=== PATIENT | female | born 1940 | race Caucasian/White ===

== ENCOUNTER → 2017-09-14 | Outpatient (CLI) | payer MEDICARE | END | disposition home or self-care (01) | LOC: KCIC DEXA 12:01 | DX: Z13.820 Encounter for screening for osteoporosis (principal); M85.80 Other specified disorders of bone density and structure, unspecified site; Z78.0 Asymptomatic menopausal state | CPT/HCPCS: 77080; 77081 ==

== ENCOUNTER 2021-06-27 11:42 | Emergency (ER) | payer MEDICARE ==
[~2021-06-27] VITALS: Ht 165.1 cm; Wt 60.9 kg
[2021-06-27] MEDS ORDERED: traMADol 50 MG TABLET PO ONE (12:45)
--- NOTE | 2021-06-27 13:38 | RAD ---
Site ID: [id number] EXAMINATION: XR HIP (WITH OR WITHOUT PELVIS) 1 VIEW. HISTORY: 80 years Female Reason: LEFT HIP PAIN, NO KNOWN INJURY COMPARISON: None. FINDINGS: No fracture, dislocation or radiopaque foreign body. There is mild joint space narrowing seen in t he hips bilaterally and mild degenerative sclerotic changes in the SI joints noted.. IMPRESSION: Mild degenerative changes Electronically signed by: Sagar Guardado MD (06/27/2021 1:36 PM) [id number]
[2021-06-27] MEDS ORDERED: TRAM50TA PO (14:00)
--- NOTE | 2021-06-27 14:02 | PHYS DOC ---
Past Medical History Past Medical History: COPD Additional Past Medical Histor: SKIN CANCER, osteoporosis with h/o pathological hip fracture Past Surgical History: Other Additional Past Surgical Histo: SKIN CANCER REMOVAL LEFT CHEST Smoking Status: Current Every Day Smoker Additional Information: 07/15 PK/DAY Alcohol Use: None General Adult EDM: Chief Complaint: HIP PAIN HPI: HPI: Patient is a 80 year old female who presents with left hip pain. Patient's daughter, whom the patient lives with, is at bedside, and aids in providing history. Patient reports that her pain began yesterday and is worse upon waking this morning. Patient normally ambulates independently at home, but has needed to use her walker to ambulate today. She did have a prior pathological fracture on the left side as well as bursitis. She follows with Dr. Ambriz for her hip pain and problems. Patient denies injury, fall or other trauma. She has no other complaints at this time. Patient reports past medical history of COPD, for which she has breathing treatments daily and oxygen at night. Patient states that she did not do a breathing treatment this morning secondary to her pain and concern, which led to her presenting to the emergency department. Review of Systems: Review of Systems: Constitutional: Denies fever or chills. Respiratory: Denies cough or shortness of breath. Cardiovascular: Denies chest pain or edema. GI: Denies abdominal pain, nausea, vomiting, bloody stools or diarrhea. : Denies dysuria or hematuria. Musculoskeletal: See HPI Integument: Denies rash or other new skin lesions. Neurologic: Denies headache, focal weakness or sensory changes. Heart Score: C/O Chest Pain: No Current Medications: Current Medications Medications (Trade) Dose Ordered Sig/[facility] Start Time Stop Time Status Last Admin Dose Admin Tramadol HCl (Ultram) 50 mg 1X ONCE 06/27/21 12:45 06/27/21 12:46 DC 06/27/21 12:45 50 MG Allergies: Allergies: Allergies Coded Allergies Type Severity Reaction Last Updated Verified iodine Allergy Severe Anaphylaxis 06/27/21 Yes clopidogrel Allergy Intermediate Rash 06/27/21 Yes Physical Exam: PE: Constitutional: Well developed, well nourished, well groomed, no acute distress, non-toxic appearance. Cardiovascular: Heart rate regular rhythm, no murmur. Lungs & Thorax: Diminished breath sounds bilaterally, consistent with baseline. Abdomen: Bowel sounds normal, soft, no tenderness, no masses, no pulsatile masses. Skin: Warm, dry, no erythema, no rash. Back: No step-offs, no tenderness, no CVA tenderness. Extremities: Mild left-sided tenderness to palpation to the hip, palpation on right hip elicits pain in the left hip. Extremities otherwise no tenderness, no cyanosis, no clubbing, ROM intact, no edema. Neurovascular intact in extremitie s x4. Neurologic: Alert and oriented x4, no focal deficits noted. Motor strength 4/5 grossly in extremities x4, consistent with baseline. Current Patient Data: Vital Signs: Vital Signs Date Time Temp Pulse Resp B/P (MAP) Pulse Ox O2 Delivery O2 Flow Rate FiO2 06/27/21 15:51 112 22 120/76 (91) 93 Room Air 06/27/21 15:39 Nasal Cannula 2.0 06/27/21 15:37 102 127/66 (86) Nasal Cannula 0.5 06/27/21 15:03 110 24 131/60 (83) 83 Room Air 06/27/21 14:13 100 30 129/58 (81) 92 Nasal Cannula 0.5 06/27/21 13:43 98 33 117/57 (77) 90 Nasal Cannula 0.5 06/27/21 13:13 98 24 124/76 (92) 89 Nasal Cannula 0.5 06/27/21 12:45 22 92 06/27/21 12:22 104 28 132/54 (80) 92 Nasal Cannula 0.5 06/27/21 11:45 98.2 105 26 149/90 (109) 92 Room Air 98.2 Radiology/Procedures: Radiology/Procedures: PROCEDURE: HIP BILATERAL WITH PELVIS Site ID: [id number] EXAMINATION: XR HIP (WITH OR WITHOUT PELVIS) 1 VIEW. HISTORY: 80 years Female Reason: LEFT HIP PAIN, NO KNOWN INJURY COMPARISON: None. FINDINGS: No fracture, dislocation or radiopaque foreign body. There is mild joint space narrowing seen in the hips bilaterally and mild degenerative sclerotic changes in the SI joints noted.. IMPRESSION: Mild degenerative changes Electronically signed by: Sagar Guardado MD (06/27/2021 1:36 PM) [id number] Course & Med Decision Making: Course & Med Decision Making Pertinent Labs and Imaging studies reviewed. (See chart for details) Patient is a 80-year-old female with history of osteoporosis with pathological fracture of left hip and bursitis with left hip pain. Work-up today will include pain management as well as x-rays of bilateral hips secondary to pain in both. Plain films reveal arthritic and degenerative changes, without acute fracture or other abnormality. Patient instructed to follow-up with Dr. Ambriz regarding continued pain, or possibly get a referral from primary care for rheumatology. Patient and her daughter at bedside understand and are agreeable to discharge plan. Dragon Disclaimer: Daniel Disclaimer: This electronic medical record was generated, in whole or in part, using a voice recognition dictation system. Departure Departure Impression: Primary Impression: Arthritis pain of hip Additional Impression: COPD (chronic obstructive pulmonary disease) Qualified Codes: J44.9 - Chronic obstructive pulmonary disease, unspecified Disposition: HOME / SELF CARE / HOMELESS Condition: STABLE Referrals: NILDA RUVALCABA MD (PCP) Patient Instructions: Arthritis, Degenerative-Brief Scripts Tramadol Hcl (TRAMADOL HCL) 50 Mg Tablet 1 TAB PO DAILY PRN for PAIN, #20 TAB 0 Refills Prov: CONNOR GALVAN 06/27/21 CONNOR GALVAN Jun 27, 2021 14:01
[2021-06-27] MEDS ORDERED: IPRATRPIUM/ALBUTEROL 0.5/2.5MG 3 ML NEBU. NEB ONE (15:15)
[2021-06-27 15:51] VITALS: BP 120/76
== END 2021-06-27 15:55 | disposition home or self-care (01) ==
LOC: ER 11:42
DX: M16.12 Unilateral primary osteoarthritis, left hip (principal); J44.9 Chronic obstructive pulmonary disease, unspecified; F17.200 Nicotine dependence, unspecified, uncomplicated; Z88.8 Allergy status to other drugs, medicaments and biological substances
CPT/HCPCS: 73521; 94640; 99285-25

== ENCOUNTER → 2021-07-03 | Outpatient (CLI) | payer MEDICARE ==
[2021-06-27 15:51] VITALS: BP 120/76
[~2021-07-03] MED LIST: TRAM50TA PO
--- NOTE | 2021-07-03 14:03 | KCIC ---
EXAM: CT CHEST WITHOUT CONTRAST (LDCT LUNG CANCER SCREENING). HISTORY: COPD. Cigarette smoking. TECHNIQUE: CT of the chest was performed without intravenous contrast using a low-dose lung screening protocol. Findings analysis is based on ACR Lung-RADS v1.1. *One or more of the following individual ized dose reduction techniques were utilized for this examination: 1. Automated exposure control. 2. Adjustment of the mA and/or kV according to patient size. 3. Use of iterative reconstruction technique. COMPARISON: None. FINDINGS: The heart is normal in size. There is calcified atherosclerotic plaque involving the aorta and coronary arteries. There is no mediastinal or hilar lymphadenopathy. There is bandlike density wi thin the medial right upper lobe likely due to scarring. There are similar-appearing suspected scarri ng involving the lingula and medial right middle lobe. There is no pleural effusion or pneumothorax. There is mild apical predominant emphysema. There is a 5 mm right lower lobe pulmonary nodule (series 6, image 135). There is a 6 mm medial right lower lobe pulmonary nodule (series 6, image 164). There is no acute finding involving the upper abdomen. There is partial visualization of an abdominal aort ic aneurysm measuring 4.2 cm on the [id number]-rg-polo. There are degenerative changes involving the spine . There is a chronic severe compression fracture with vertebral plasty changes at T7. There are dorsa l column stimulator leads terminating at T7-T8. IMPRESSION: 1. Right lower lobe pulmonary nodules measuring 5 mm and 6 mm. Lung RADS category 2: Follow-up in 12 months is recommended. 2. Pulmonary emphysema with suspected bandlike scarring within the medial right upper lobe and lingul a. 3. Abdominal aortic aneurysm partially included on the [id number], measuring 4.2 cm. Evaluation of the remainder of the abdominal aorta with a sonogram or CT is recommended if there are no recent rishi dies to assess the full size of this aneurysm. Electronically signed by: Kristyn Harman MD (07/03/2021 2:01 PM) [id number]
== END ==
LOC: KCIC CT 13:20
PROVIDERS: ATTEND Family Medicine
DX: R91.8 Other nonspecific abnormal finding of lung field (principal); J43.9 Emphysema, unspecified; I71.4 Abdominal aortic aneurysm, without rupture; I70.0 Atherosclerosis of aorta; I25.10 Atherosclerotic heart disease of native coronary artery without angina pectoris; Z87.891 Personal history of nicotine dependence
CPT/HCPCS: 71271

== ENCOUNTER → 2021-08-08 | Outpatient (CLI) | payer MEDICARE ==
[~2021-08-08] MED LIST changes: +CONTRAST GIVEN. MC PRN; +IOHEXOL 350 MG/ML 100 ML VIAL. IV ONE
--- NOTE | 2021-08-08 16:45 | RAD ---
CTA ABDOMEN AND PELVIS WITHOUT IV CONTRAST History: Infrarenal aortic aneurysm. Aortic stenosis. Comparison: None. Technique: CT angiogram of the abdominal aorta before and after intravenous contrast. Findings: The abdominal aorta demonstrates severe tortuosity and heavy atherosclerosis with an infrarenal aneur ysm measuring 5.8 x 5.5 cm diameter by 9.5 cm long. The aorta is occluded as it makes an abrupt leftw sarah deviation prior to the aneurysm and the occlusion is present throughout the aneurysm to the level of the bilateral iliac bifurcations at which point flow was reestablished via collateralization. The origins of the celiac, superior mesenteric and renal arteries are patent although there is approxima tely 50 percent stenosis at the origin of the renal arteries bilaterally. The origin of the inferior mesenteric artery is occluded however enhancement is present via collateral flow. The internal and ex ternal iliac arteries and bilateral common femoral arteries and branches are patent. Mild basilar emphysematous change. Platelike atelectasis left lower lobe. The liver is unremarkable. Gallbladder is absent. No biliary ductal dilatation. Spleen and adrenal glands are unremarkable. Bila teral renal cortical atrophy. No hydronephrosis or nephrolithiasis. The stomach and small bowel are u nremarkable. Mild sigmoid diverticulosis. No pericolonic inflammatory changes. No intra-abdominal campbell e air or free fluid. No adenopathy. Small fluid collection within the left inguinal hernia. Left post erior flank spinal stimulator device. Lead tips terminating in the region of T9. Mild anterolisthesis of L3 on L4 and L4 on L5. Multilevel lumbar disc and facet disease. No acute osseous abnormality. Impression: 1. Infrarenal aortic aneurysm measuring 5.8 x 5.5 cm diameter by 9.5 cm length with complete occlusi on from the infrarenal aorta to the iliac bifurcations. Reestablish flow via collateralization with i ntact bilateral lower extremity arteries. 2. Mild sigmoid diverticulosis. 3. Mild lower lobe emphysema. 4. Degenerative changes spine without acute osseous abnormality. Findings discussed with JAYJAY REED MD at 08/08/2021 4:30 PM. FOR INTERNAL CODING PURPOSES RESULT CODE: (C) ------ Exposure: One or more of the following individualized dose reduction techniques were utilized for thi s examination: 1. Automated exposure control 2. Adjustment of the mA and/or kV according to patient size 3. Use of iterative reconstruction technique. Electronically signed by: Chaitanya Small MD (08/08/2021 4:42 PM) [facility]
== END ==
LOC: CT 11:34
PROVIDERS: ATTEND Family Medicine
DX: I71.4 Abdominal aortic aneurysm, without rupture (principal); J43.9 Emphysema, unspecified; K57.30 Diverticulosis of large intestine without perforation or abscess without bleeding; N26.1 Atrophy of kidney (terminal); I70.0 Atherosclerosis of aorta; Q25.46 Tortuous aortic arch; M43.16 Spondylolisthesis, lumbar region; M51.36 Other intervertebral disc degeneration, lumbar region; M47.819 Spondylosis without myelopathy or radiculopathy, site unspecified
CPT/HCPCS: 74174; Q9967

== ENCOUNTER 2021-10-08 19:40 | Emergency (ER) | payer MEDICARE ==
[~2021-10-08] VITALS: Ht 165.1 cm; Wt 61.4 kg
[~2021-10-08 19:40] MED LIST changes: -CONTRAST GIVEN. MC PRN; -IOHEXOL 350 MG/ML 100 ML VIAL. IV ONE
--- NOTE | 2021-10-08 19:58 | PHYS DOC ---
Past Medical History Past Medical History: COPD Additional Past Medical Histor: SKIN CANCER, osteoporosis with h/o pathological hip fracture Past Surgical History: Other Additional Past Surgical Histo: SKIN CANCER REMOVAL LEFT CHEST Smoking Status: Current Every Day Smoker Alcohol Use: None General Adult EDM: Chief Complaint: ABDOMINAL PAIN HPI: HPI: Patient is a 80 year old female with history of COPD presenting today complaining of mild to moderate left groin pain, symptoms have been going on for couple days but got worse this evening. Patient states she was seen by the PCP a couple days ago for the same pain and was diagnosed with a hernia, she is supposed to have a CT of the abdomen and pelvis tomorrow for this hernia but today the pain has gotten worse. Denies any nausea, vomiting, fever, diarrhea. States the pain is worse on pushing the left inguinal region. States the pain feels better on laying flat Review of Systems: Review of Systems: Constitutional: Denies fever or chills. [] Eyes: Denies change in visual acuity. [] HENT: Denies nasal congestion or sore throat. [] Respiratory: Denies cough or shortness of breath. [] Cardiovascular: Denies chest pain or edema. [] GI: Reports left groin pain, denies nausea, vomiting, bloody stools or diarrhea. [] : Denies dysuria. [] Musculoskeletal: Denies back pain or joint pain. [] Integument: Denies rash. [] Neurologic: Denies headache, focal weakness or sensory changes. [] Psychiatric: Denies depression or anxiety. [] Heart Score: C/O Chest Pain: N/A Risk Factors: Risk Factors: DM, Current or recent (<one month) smoker, HTN, HLP, family history of CAD, obesity. Risk Scores: Score 0 - 3: 2.5% MACE over next 6 weeks - Discharge Home Score 4 - 6: 20.3% MACE over next 6 weeks - Admit for Clinical Observation Score 7 - 10: 72.7% MACE over next 6 weeks - Early Invasive Strategies Current Medications: Current Medications Medications (Trade) Dose Ordered Sig/[facility] Start Time Stop Time Status Last Admin Dose Admin Morphine Sulfate (Morphine Sulfate) 4 mg 1X ONCE 10/08/21 20:00 10/08/21 20:01 UNV Ondansetron HCl (Zofran) 4 mg 1X ONCE 10/08/21 20:00 10/08/21 20:01 UNV Allergies: Allergies: Allergies Coded Allergies Type Severity Reaction Last Updated Verified iodine Allergy Severe Anaphylaxis 06/27/21 Yes clopidogrel Allergy Intermediate Rash 06/27/21 Yes Physical Exam: PE: Constitutional: Well developed, well nourished, no acute distress, non-toxic appearance. [] HENT: Normocephalic, atraumatic, bilateral external ears normal, oropharynx moist, no oral exudates, nose normal. [] Eyes: PERRLA, EOMI, conjunctiva normal, no discharge. [] Neck: Normal range of motion, no tenderness, supple, no stridor. [] Cardiovascular:Heart rate regular rhythm, no murmur [] Lungs & Thorax: Bilateral breath sounds clear to auscultation [] Abdomen: Bowel sounds normal, soft, no tenderness, no masses, no pulsatile masses. [] Left inguinal region with a palpable mass suspicious of an inguinal hernia, the hernia feels reducible the patient cannot tolerate the pain Skin: Warm, dry, no erythema, no rash. [] Back: No tenderness, no CVA tenderness. [] Extremities: No tenderness, no cyanosis, no clubbing, ROM intact, no edema. [] Neurologic: Alert and oriented X 3, normal motor function, normal sensory function, no focal deficits noted. [] Psychologic: Affect normal, judgement normal, mood normal. [] EKG: EKG: [] Radiology/Procedures: Radiology/Procedures: []PROCEDURE: CT ABDOMEN PELVIS WO CONTRAST Examination: CT of the abdomen pelvis without contrast HISTORY: History of left inguinal hernia COMPARISON: 08/08/2019 TECHNIQUE: Axial CT images of the abdomen pelvis were performed without contrast. Coronal and sagittal reformats are performed Exposure: One or more of the following individualized dose reduction techniques were utilized for this examination: 1. Automated exposure control 2. Adjustment of the mA and/or kV according to patient size 3. Use of iterative reconstruction technique. FINDINGS: The bibasilar lungs are clear. No evidence of free air identified in the abdomen The evaluation of the solid organs is limited due to lack of IV contrast. The evaluation of bowel is limited due to lack of oral contrast. The visualized noncontrasted liver, spleen, adrenals grossly appears unremarkable. Gallbladder is mildly distended. The stomach is mildly distended The small bowel is nondilated. Feces and gas noted in the colon Multiple sigmoid colon diverticulosis Urinary bladder is mildly distended No evidence of intrarenal collecting system calculi or hydronephrosis. Small fat-containing left femoral hernia is identified slight increase in size compared to prior exam. Infrarenal abdominal aortic aneurysm is identified measuring 5.9 cm in transverse dimension similar to prior exam. Moderate degenerative changes lumbar spine. IMPRESSION: 1. Small fat-containing left femoral hernia slight increase in size compared to prior exam. 2. Infrarenal abdominal aortic aneurysm similar to prior exam, measuring 5.9 cm in transverse dimension. 3. Multiple sigmoid colon diverticulosis. Electronically signed by: Bipin Samuels MD (10/08/2021 9:11 PM) [id number] DICTATED and SIGNED BY: BIPNI SAMUELS MD DATE: 10/08/212101 Course & Med Decision Making: Course & Med Decision Making Pertinent Labs and Imaging studies reviewed. (See chart for details) This is a 80-year-old female patient presented to the ED today with left groin pain that began a couple days ago. UA negative for infection, CBC CMP with no acute findings, CT of the abdomen and pelvis was noted for small fat-containing left femoral hernia slight increase in size compared to prior exam. Infrarenal abdominal aortic aneurysm similar to prior exam, measuring 5.9 cm in transverse dimension. Multiple sigmoid colon diverticulosis. Provided general surgeon for follow-up. Patient is aware of the aneurysm noted on CT. Follow-up with PCP Daniel Disclaimer: Daniel Disclaimer: This electronic medical record was generated, in whole or in part, using a voice recognition dictation system. Departure Departure Impression: Primary Impression: Femoral hernia of left side Disposition: 01 HOME / SELF CARE / HOMELESS Condition: STABLE Referrals: JAYJAY REED MD (PCP) MIKKI ENGLAND MD follow up in 1-2 weeks Patient Instructions: Hernia Additional Instructions: You were evaluated in the emergency room. You were noted to have a small left femoral hernia. Please contact the provided general surgeon tomorrow and set up a follow-up appointment. Also follow-up with your primary care doctor in the next 1 to 2 weeks Scripts Hydrocodone Bit/Acetaminophen (HYDROCODONE-APAP 5-325 ) 1 Tab Tablet 1 TAB PO PRN Q6HRS PRN for PAIN, #14 TAB 0 Refills Prov: MUTUNGA,KAREN M [employer]ER 10/08/21 KAREN RAUSCH APRN Oct 08, 2021 19:58
[2021-10-08] MEDS ORDERED: ONDANSETRON PF 4 MG/2 ML VIAL. IVP ONE (20:00)
[2021-10-08] MEDS ORDERED: MORPHINE SULFATE 4 MG/ML INJ. IVP ONE (20:00)
[2021-10-08 20:21] LABS: BASO % 1 % (0-3); EOS # 0.2 x10^3/uL (0.0-0.7); EOS % 3 % (0-3); HEMATOCRIT 37.3 % (36.0-47.0); LYMPH # 2.3 x10^3/uL (1.0-4.8); LYMPH % 36 % (24-48); MEAN CORPUSCULAR HEMOGLOBIN 30 pg (25-35); MEAN CORPUSCULAR HGB CONC 32 g/dL (31-37); MEAN CORPUSCULAR VOLUME 91 fL (79-100); MONO # 0.4 x10^3/uL (0.0-1.1); MONO % 6 % (0-9); NEUT # 3.5 x10^3/uL (1.8-7.7); NEUT % 54 % (31-73); PLATELET COUNT 224 x10^3/uL (140-400); RED BLOOD COUNT 4.08 x10^6/uL (3.50-5.40); RED CELL DISTRIBUTION WIDTH 15.5 % (11.5-14.5); WHITE BLOOD COUNT 6.5 x10^3/uL (4.0-11.0)
[2021-10-08 20:28] LABS: CALCIUM 9.4 mg/dL (8.5-10.1); CREATININE 0.8 mg/dL (0.6-1.0); POTASSIUM 3.9 mmol/L (3.5-5.1)
[2021-10-08] MEDS ORDERED: IPRATRPIUM/ALBUTEROL 0.5/2.5MG 3 ML NEBU. NEB ONE (20:30)
[2021-10-08 20:34] LABS: ALBUMIN 3.5 g/dL (3.4-5.0); ALBUMIN/GLOBULIN RATIO 1.1 (1.0-1.7); TOTAL BILIRUBIN 0.3 mg/dL (0.2-1.0); TOTAL PROTEIN 6.7 g/dL (6.4-8.2)
[2021-10-08] MEDS ORDERED: BUDESONIDE 0.5 MG/2 ML NEBU. NEB ONE (21:00)
[2021-10-08 21:13] LABS: BACTERIA,URINE 0 /HPF (0-FEW)
--- NOTE | 2021-10-08 21:14 | RAD ---
Examination: CT of the abdomen pelvis without contrast HISTORY: History of left inguinal hernia COMPARISON: 08/08/2019 TECHNIQUE: Axial CT images of the abdomen pelvis were performed without contrast. Coronal and sagitta l reformats are performed Exposure: One or more of the following individualized dose reduction techniques were utilized for thi s examination: 1. Automated exposure control 2. Adjustment of the mA and/or kV according to patient size 3. Use of iterative reconstruction technique. FINDINGS: The bibasilar lungs are clear. No evidence of free air identified in the abdomen The evaluation of the solid organs is limited due to lack of IV contrast. The evaluation of bowel is limited due to lack of oral contrast. The visualized noncontrasted liver, spleen, adrenals grossly ap pears unremarkable. Gallbladder is mildly distended. The stomach is mildly distended The small bowel is nondilated. Feces and gas noted in the colon Multiple sigmoid colon diverticulosis Urinary bladder is mildly distended No evidence of intrarenal collecting system calculi or hydronephrosis. Small fat-containing left femo ral hernia is identified slight increase in size compared to prior exam. Infrarenal abdominal aortic aneurysm is identified measuring 5.9 cm in transverse dimension similar t o prior exam. Moderate degenerative changes lumbar spine. IMPRESSION: 1. Small fat-containing left femoral hernia slight increase in size compared to prior exam. 2. Infrarenal abdominal aortic aneurysm similar to prior exam, measuring 5.9 cm in transverse dimens ion. 3. Multiple sigmoid colon diverticulosis. Electronically signed by: Bipin Samuels MD (10/08/2021 9:11 PM) [id number]
[2021-10-08] MEDS ORDERED: HYDR-2761 PO (21:46)
[2021-10-08 21:55] VITALS: BP 113/55
== END 2021-10-08 22:06 | disposition home or self-care (01) ==
LOC: ER 19:40
DX: R10.32 Left lower quadrant pain (principal); J44.9 Chronic obstructive pulmonary disease, unspecified; F17.200 Nicotine dependence, unspecified, uncomplicated; Z88.8 Allergy status to other drugs, medicaments and biological substances
CPT/HCPCS: 36415; 51702; 74176; 80053; 81001; 85025; 94640; 96374; 96375; 99285; J2270; J2405; J7626

== ENCOUNTER → 2021-11-13 | Outpatient (CLI) | payer MEDICARE ==
[~2021-11-13] MED LIST changes: +HYDR-2761 PO
--- NOTE | 2021-11-13 17:45 | CARD ---
MR#: [id number] Date of Study: 11/13/2021 Ordering Physician: RAVI MATHEW, Referring Physician: RAVI MATHEW, Tech: Ayse Dickson [facility] APPROVED REPORT EXAM: Two-dimensional and M-mode echocardiogram with Doppler and color Doppler. Other Information Quality : GoodHR: 65bpm Rhythm : NSR INDICATION Murmur RISK FACTORS Hypertension Hyperlipidemia 2D DIMENSIONS RVDd3.2 (2.9-3.5cm)Left Atrium(2D)3.4 (1.6-4.0cm) IVSd0.9 (0.7-1.1cm)Aortic Root(2D)3.1 (2.0-3.7cm) LVDd4.0 (3.9-5.9cm)LVOT Diameter2.0 (1.8-2.4cm) PWd0.9 (0.7-1.1cm)LVDs2.1 (2.5-4.0cm) FS (%) 47.3 %SV54.6 ml Aortic Valve AoV Peak Jose.131.4cm/sAoV VTI29.0cm AO Peak GR.6.9mmHgLVOT Peak Jose.102.4cm/s AO Mean GR.3mmHgAVA (VMAX)2.44cm2 Mitral Valve MV E Myqcdeda56.9cm/sMV DECEL [id number] MV A Joqqqyfq739.1cm/sE/A Ratio0.7 Pulmonary Valve PV Peak Vyevweed76.0cm/s Tricuspid Valve TR P. [id number]/sTR Peak Gr.37mmHg LEFT VENTRICLE The left ventricle is normal size. There is normal left ventricular wall thickness. The left ventricu lar systolic function is normal. LV ejection fraction of 50 to 55%. There is normal LV segmental wall motion. The left ventricular diastolic function and filling is normal for age. RIGHT VENTRICLE The right ventricle is normal size. There is normal right ventricular wall thickness. The right ventr icular systolic function is normal. ATRIA The left atrium size is normal. The right atrium size is normal. The interatrial septum is intact wit h no evidence for an atrial septal defect or patent foramen ovale as noted on 2-D or Doppler imaging. AORTIC VALVE The aortic valve is normal in structure and function. Doppler and Color Flow revealed no significant aortic regurgitation. There is no significant aortic valvular stenosis. MITRAL VALVE The mitral valve is normal in structure and function. There is no evidence of mitral valve prolapse. There is no mitral valve stenosis. Doppler and Color Flow revealed trace to mild mitral valve regurgi tation. TRICUSPID VALVE The tricuspid valve is normal in structure and function. Doppler and Color Flow revealed mild tricusp id regurgitation. There is no tricuspid valve stenosis. PULMONIC VALVE The pulmonary valve is normal in structure and function. Doppler and Color Flow revealed mild pulmoni c valvular regurgitation. GREAT VESSELS The aortic root is normal in size. The ascending aorta is normal in size. The IVC is normal in size a nd collapses >50% with inspiration. PERICARDIAL EFFUSION There is no evidence of significant pericardial effusion. Critical Notification Critical Value: No <Conclusion> The left ventricle is normal size. The left ventricular systolic function is normal. LV ejection fraction of 50 to 55%. Doppler and Color Flow revealed no significant aortic regurgitation. There is no significant aortic valvular stenosis. Doppler and Color Flow revealed trace to mild mitral valve regurgitation. Doppler and Color Flow revealed mild tricuspid regurgitation. Signed by : Ruben Kirkpatrick MD Electronically Approved : 11/13/2021 17:44:53
== END ==
LOC: ECHO 09:36
PROVIDERS: ATTEND Internal Medicine Cardiovascular Disease
DX: Z01.810 Encounter for preprocedural cardiovascular examination (principal); I08.8 Other rheumatic multiple valve diseases
CPT/HCPCS: 93306; C8929